=== PATIENT | male | born 1975 | race American Indian/Alaskan Native ===

== ENCOUNTER 2021-02-26 20:10 | Emergency (ER) | payer OTHER ==
[2021-02-26 21:45] VITALS: BP 133/88
--- NOTE | 2021-02-26 21:46 | Event Note ---
ED Screening Note ED Screening Note: LLE PAIN P DROPPING CHAIR ON LEG MID MAY NOW SWOLLEN AND TIGHT DOWN TO ANKLE NO MED HX NO HX DVT MINIMAL RISK FOR DVT This initial assessment/diagnostic orders/clinical plan/treatment(s) is/are subject to change based on patients health status, clinical progression and re- assessment by fellow clinical providers in the ED. Further treatment and workup at subsequent clinical providers discretion. Patient/guardian urged not to elope from the ED as their condition may be serious if not clinically assessed and managed. Initial orders include: XR US RO DVT
--- NOTE | 2021-02-26 22:30 | XRay Report ---
LEFT TIBIA-FIBULA 4 VIEW(S) INDICATION / CLINICAL INFORMATION: fell down stairs pinning leg under couch he was moving 02/01.... leg still swollen and painful COMPARISON: None available. FINDINGS: BONES / JOINT(S): No acute fracture or subluxation. No significant arthritis. Prominent retrocalcanea l enthesophyte. SOFT TISSUES: No significant abnormality. ADDITIONAL FINDINGS: None. Signer Name: Archie Syed MD Signed: 02/26/2021 10:26 PM Workstation Name: [id number]
--- NOTE | 2021-02-26 22:39 | Emergency Department Report ---
ED Lower Extremity HPI - General Chief Complaint: Extremity Injury, Lower Stated Complaint: LEFT LEG INJURY/SWOLLEN Time Seen by Provider: 02/26/21 21:45 Source: patient Mode of arrival: Ambulatory Limitations: No Limitations - History of Present Illness Initial Comments: 45 yo AA comes to ER p dropping something on his l garrido about 3 w ago. He states since then it has been swollen and painful. Complaint: other -: Gradual, days(s) Injury: Leg: Left Type of Injury: blunt Improves With: nothing Worsens With: nothing Context: direct blow - Related Data Allergies Allergy/AdvReac Type Severity Reaction Status Date / Time No Known Allergies Allergy Unverified 02/26/21 21:45 ED Review of Systems ROS: Stated complaint: LEFT LEG INJURY/SWOLLEN Other details as noted in HPI Comment: All other systems reviewed and negative ED Past Medical Hx - Past Medical History Previous Medical History?: No - Surgical History Past Surgical History?: Yes Additional Surgical History: nasal surgery - Family History Family history: no significant - Social History Smoking Status: Never Smoker Substance Use Type: None ED Physical Exam - General Limitations: No Limitations General appearance: alert, in no apparent distress - Head Head exam: Present: atraumatic, normocephalic - Eye Eye exam: Present: normal appearance - ENT ENT exam: Present: mucous membranes moist - Neck Neck exam: Present: normal inspection - Respiratory Respiratory exam: Present: normal lung sounds bilaterally. Absent: respiratory distress - Cardiovascular Cardiovascular Exam: Present: regular rate, normal rhythm. Absent: systolic murmur, diastolic murmur, rubs, gallop - GI/Abdominal GI/Abdominal exam: Present: soft, normal bowel sounds - Rectal Rectal exam: Present: deferred - Extremities Exam Extremities exam: Present: normal inspection - Expanded Lower Extremity Exam Left Knee exam: Present: normal inspection Lower Leg exam: Present: full ROM, swelling. Absent: tenderness Ankle exam: Present: swelling Foot/Toe exam: Present: normal inspection Neuro vascular tendon exam: Present: no vascular compromise - Back Exam Back exam: Present: normal inspection - Neurological Exam Neurological exam: Present: alert, oriented X3 - Psychiatric Psychiatric exam: Present: normal affect, normal mood - Skin Skin exam: Present: warm, dry, intact, normal color. Absent: rash ED Course Vital Signs 02/26/21 02/26/21 21:40 23:40 Temperature 97.9 F Pulse Rate 78 82 Respiratory 18 16 Rate Blood Pressure 133/88 O2 Sat by Pulse 98 99 Oximetry ED Lower Extremity MDM - Radiology Data Radiology results: report reviewed, image reviewed NAP - Medical Decision Making XRAY NAP us negative for dvt Vital Signs 02/26/21 21:40 Temperature 97.9 F Pulse Rate 78 Respiratory 18 Rate Blood Pressure 133/88 O2 Sat by Pulse 98 Oximetry dc home with dc plan of care. pt verbalizes understanding. - Differential Diagnosis RO FX/SOFT TISSUE INJURY/ DVT Critical care attestation.: If time is entered above; I have spent that time in minutes in the direct care of this critically ill patient, excluding procedure time. ED Disposition Clinical Impression: Leg pain Disposition: DC-01 TO HOME OR SELFCARE Is pt being admited?: No Does the pt Need Aspirin: No Condition: Stable Additional Instructions: warm compresses over the counter motrin or tylenol for pain follow up with pcp if pain persists referral below Referrals: IDANIA OVALLES MD [Staff Physician] - 3-5 Days Forms: Work/School Release Form(ED) Time of Disposition: 22:43
--- NOTE | 2021-03-03 07:47 | Vascular Lab Report ---
DUPLEX DOPPLER LOWER EXTREMITY VEINS, LEFT INDICATION: pain and swelling lle. TECHNIQUE: Duplex doppler imaging was performed through the veins of the left lower extremity using venous compr ession and other maneuvers. COMPARISON: None available. FINDINGS: Common femoral vein: Negative. Superficial femoral vein: Negative. Popliteal vein: Negative. Calf veins: Negative. Additional findings: None. IMPRESSION: 1. No sonographic evidence for DVT in the left lower extremity. Signer Name: Della Mancilla MD Signed: 02/26/2021 11:14 PM Workstation Name: [id number]
== END 2021-02-26 23:40 | disposition home or self-care (01) ==
LOC: ED 20:10
DX: M79.605 Pain in left leg (principal); Z98.890 Other specified postprocedural states

== ENCOUNTER 2021-04-19 16:49 | Emergency (ER) | payer OTHER ==
[2021-04-19 17:59] VITALS: BP 122/76
[2021-04-19 19:24] LABS: Basophils % (Auto) 0.3 % (0.0-1.8); Eosinophils # (Auto) 0.7 K/mm3 (0.0-0.4); Eosinophils % (Auto) 7.6 % (0.0-4.3); Hematocrit 41.5 % (35.5-45.6); Hemoglobin 13.9 gm/dl (11.8-15.2); Lymphocytes # (Auto) 2.2 K/mm3 (1.2-5.4); Lymphocytes % (Auto) 23.7 % (13.4-35.0); Mean Corpuscular HGB Conc 34 % (32-34); Mean Corpuscular Volume 87 fl (84-94); Monocytes # (Auto) 0.7 K/mm3 (0.0-0.8); Monocytes % (Auto) 7.4 % (0.0-7.3); Platelet Count 282 K/mm3 (140-440); Red Blood Count 4.78 M/mm3 (3.65-5.03); Red Cell Distribution Width 13.1 % (13.2-15.2)
[2021-04-19 19:33] LABS: Alanine Aminotransferase 22 units/L (7-56); Albumin 4.2 g/dL (3.9-5); BUN/Creatinine Ratio 8; Blood Urea Nitrogen 9 mg/dL (9-20); Calcium 9.5 mg/dL (8.4-10.2); Hemolysis Index 6
--- NOTE | 2021-04-21 10:38 | Electrocardiograph Report ---
[facility] Test Date: 2021-04-19 Test Time: 17:31:05 Pat Name: PADMINI CHO Department: Room: Gender: M Cobol Engineer: TUTU : 1975 Requested By: JOI BYRD Order Number: [id number] Reading MD: Leonel Kinney Measurements Intervals [place] Rate: 89 P: 46 MA: 139 QRS: -30 QRSD: 82 T: 0 QT: 356 QTc: 434 Interpretive Statements Sinus rhythm Left axis deviation No previous ECG available for comparison Electronically Signed On 04-21-2021 10:37:56 EDT by Leonel Kinney
== END 2021-04-19 19:58 | disposition left against medical advice (07) ==
LOC: ED 16:49
DX: S09.90XA Unspecified injury of head, initial encounter (principal); Z53.21 Procedure and treatment not carried out due to patient leaving prior to being seen by health care provider; X58.XXXA Exposure to other specified factors, initial encounter; Y93.89 Activity, other specified; Y92.89 Other specified places as the place of occurrence of the external cause; Y99.8 Other external cause status
CPT/HCPCS: 36415; 80053; 84484; 85025; 93005

== ENCOUNTER 2021-04-21 11:39 | Emergency (ER) | payer OTHER ==
[2021-04-21 12:27] VITALS: BP 143/91
--- NOTE | 2021-04-21 16:25 | Event Note ---
ED Screening Note Date of service: 04/21/21 Time: 16:20 ED Screening Note: 45-year-old -Lao male presents to the emergency room for dizziness and a syncopal moment after he had sneezed and lost consciousness. Patient stated on Wednesday he was at work [place] [employer] [place] he started to sneeze so hard that he hit his head on the [employer] machine and blacked out. Patient states when he woke up he had blood on his phone in the machine. Patient did not realize how hard he hit his head until he went to get his phone repaired on Wednesday in the whole phone was bent. Patient states that he did come in on Wednesday to be evaluated had blood work done and EKG but the wait was so long he went home. Patient states again while at work he has been experiencing some dizziness and decided to come back in to be evaluated. Patient is alert and oriented x3 no acute distress nontoxic in appearance Patient has left side maxillary and left lateral nasal bone tenderness. Neck cervical tenderness Patient is ambulatory without difficulties. This initial assessment/diagnostic orders/clinical plan/treatment(s) is/are subject to change based on patients health status, clinical progression and re- assessment by fellow clinical providers in the ED. Further treatment and workup at subsequent clinical providers discretion. Patient/guardian urged not to elope from the ED as their condition may be serious if not clinically assessed and managed. Initial orders include: CT head, neck, facial
--- NOTE | 2021-04-21 17:33 | Cat Scan Report ---
CT head/brain wo con INDICATION / CLINICAL INFORMATION: 45 years Male; Head trauma. TECHNIQUE: Routine CT head without contrast. All CT scans at this location are performed using CT dos e reduction for ALARA by means of automated exposure control. COMPARISON: None. FINDINGS: BRAIN / INTRACRANIAL CONTENTS: No acute hemorrhage, mass effect, midline shift, hydrocephalus, or acu te, large territorial infarct. No signs of significant atrophy or chronic infarct. No significant whi te matter abnormality seen. CRANIOCERVICAL JUNCTION: No significant abnormality. ORBITS: No significant abnormality of visualized orbits. SINUSES / MASTOIDS: Partial opacification of the ethmoid seen. Mucous retention cyst suggested in the left maxillary antrum. Prior antrostomies noted. There is partial opacification of the mastoids bilaterally without coalescence of air cells. ADDITIONAL FINDINGS: Small metallic BB is seen in the subcutaneous soft tissues superficial left lizbeth etal bone. IMPRESSION: 1. No focal mass, hemorrhage, hydrocephalus, or acute, large territorial infarct. Signer Name: Chinmay Crews MD, III Signed: 04/21/2021 5:29 PM Workstation Name: [id number]
--- NOTE | 2021-04-21 17:39 | Cat Scan Report ---
CT cervical spine wo con INDICATION / CLINICAL INFORMATION: 45 years Male; Head trauma. TECHNIQUE: Axial CT images of the cervical spine were obtained. Sagittal and coronal reformatted images were pr oduced. All CT scans at this location are performed using CT dose reduction for ALARA by means of aut omated exposure control. COMPARISON: None available. FINDINGS: POST-SURGICAL CHANGES: None. ALIGNMENT: Straightening of the cervical spine noted, which may be related to patient positioning. VERTEBRAE: No signs of fracture. Vertebral bodies are grossly normal in height throughout. There is significant osseous foraminal narrowing on the left at C3-4 from uncinate hypertrophy. Mild osseous foraminal narrowing on the right at C3-4 and C4-5 from uncinate hypertrophy. INTRAVERTEBRAL DISCS: Mild disc space narrowing seen at C5-6. Mild disc disease seen at multiple leve ls with most prevalent findings at C3-4 with there is a right paracentral disc protrusion. There may be slight encroachment upon the cervical cord. Most likely there is no cord impingement. PARASPINAL SOFT TISSUES: No significant abnormality. ADDITIONAL FINDINGS: None. IMPRESSION: 1. No signs of acute bony trauma to the cervical spine. Signer Name: Chinmay Crews MD, III Signed: 04/21/2021 5:34 PM Workstation Name: [email or web address]
--- NOTE | 2021-04-21 17:42 | Cat Scan Report ---
. CT facial bones wo con INDICATION / CLINICAL INFORMATION: 45 years Male; Facial trauma. TECHNIQUE: Thin cut axial images obtained. Sagittal and coronal reconstructions performed. All CT scans at this location are performed using CT dose reduction for ALARA by means of automated exposure control. COMPARISON: None available. FINDINGS: No signs of calvarial or acute bony facial fracture. Prior antrostomies noted. There is partial opacification of the ethmoids. Mucous retention cysts/polyps seen in both maxillary antra. Moderate mucosal thickening is seen in the right sphenoid sinus. There is partial opacificatio n the mastoids without coalescence of air cells. Subcutaneous BB is seen superficial left parietal bone. IMPRESSION: 1. No definitive signs of acute bony facial fracture. Signer Name: Chinmay Crews MD, III Signed: 04/21/2021 5:38 PM Workstation Name: [id number] [id number]
--- NOTE | 2021-04-21 19:05 | Emergency Department Report ---
ED General Adult HPI - General Chief complaint: Head Injury Stated complaint: SYNCOPE Time Seen by Provider: 04/21/21 18:48 Source: patient Mode of arrival: Ambulatory Limitations: No Limitations - History of Present Illness Initial comments: 45-year-old -[place] Islander male patient presents with complaints of nausea and headache after a head injury occurring on Wednesday. Patient states that for the past 4 years he has had episodes of sneezing that cause syncope. 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 He reports he had a Holter monitor placed and the doctor believes his episodes were due to a drop in blood pressure while sneezing. Patient reports the episodes do not happen often however it did occur while at work on Wednesday and when he fell he hit his head on the kiosk machine. Patient states he was unconscious for an unknown amount of time and had mild bleeding of his head and his lip. He states he felt fine that day, however the next day he began having mild intermittent headaches relieved with Tylenol. He states on Wednesday that he had a few episodes of nausea and today he had an episode of dizziness after walking around in circles at work today and one episode of dizziness on Wednesday after the incident. He denies any further dizziness, chest pain, shortness of breath, vision changes, numbness/ tingling/weakness in his limbs, difficulty with speech/ambulation, confusion, or memory loss. No headache at current per patient. Patient did come to the ER on Wednesday, however he states the wait was too long he left after having an EKG and blood work performed. He also denies any leg pain/swelling, recent long travel/surgeries, hemoptysis/cough, or history of DVT/PE/cancer - Related Data Previous Rx's Medication Instructions Recorded Last Taken Type Ondansetron [Zofran Odt] 4 mg PO Q8HR PRN #10 tab.rapdis 04/21/21 Unknown Rx Allergies Allergy/AdvReac Type Severity Reaction Status Date / Time No Known Allergies Allergy Unverified 02/26/21 21:45 ED Review of Systems ROS: Stated complaint: SYNCOPE Other details as noted in HPI Constitutional: denies: chills, diaphoresis, fever, malaise, weakness Respiratory: denies: cough, shortness of breath Cardiovascular: denies: chest pain Gastrointestinal: nausea. denies: abdominal pain, vomiting Musculoskeletal: denies: back pain Neurological: as per HPI. denies: weakness, numbness, paresthesias, abnormal gait ED Past Medical Hx - Past Medical History Previous Medical History?: No Additional medical history: sinus - Surgical History Past Surgical History?: Yes Additional Surgical History: nasal surgery - Social History Smoking Status: Never Smoker Substance Use Type: Alcohol - Medications Home Medications: Home Medications Medication Instructions Recorded Confirmed Last Taken Type Ondansetron [Zofran Odt] 4 mg PO Q8HR PRN #10 tab.rapdis 04/21/21 Unknown Rx ED Physical Exam - General Limitations: No Limitations General appearance: alert, in no apparent distress - Head Head exam: Present: atraumatic, normocephalic - Eye Eye exam: Present: normal appearance, PERRL, EOMI. Absent: scleral icterus - Neck Neck exam: Present: normal inspection. Absent: tenderness - Respiratory Respiratory exam: Present: normal lung sounds bilaterally. Absent: respiratory distress - Cardiovascular Cardiovascular Exam: Present: regular rate, normal rhythm. Absent: systolic murmur, diastolic murmur, rubs, gallop - GI/Abdominal GI/Abdominal exam: Present: soft. Absent: tenderness - Extremities Exam Extremities exam: Present: full ROM - Back Exam Back exam: Present: full ROM - Neurological Exam Neurological exam: Present: alert, oriented X3, CN II-XII intact, normal gait. Absent: motor sensory deficit - Expanded Neurological Exam Expanded Cerebellar function: Finger to Nose: Normal, Heel to Cotton: Normal, Romberg: Normal Sensory exam: Upper Extremity Light Touch: Normal, Lower Extremity Light Touch: Normal Motor strength exam: RUE: 5, LUE: 5, RLE: 5, LLE: 5 - Psychiatric Psychiatric exam: Present: normal affect, normal mood - Skin Skin exam: Present: warm, dry, intact, normal color. Absent: rash, cyanosis, diaphoretic ED Course Vital Signs 04/21/21 12:26 Temperature 98.7 F Pulse Rate 89 Respiratory 18 Rate Blood Pressure 143/91 [Right] O2 Sat by Pulse 97 Oximetry ED Medical Decision Making - EKG Data EKG shows normal: sinus rhythm Rate: normal - EKG Data Interpretation: other (Left axis deviation) - Radiology Data Radiology results: report reviewed - Medical Decision Making 45-year-old -[place] male patient presents with complaints of nausea and headache after a head injury occurring on Wednesday. Patient states that for the past 4 years he has had episodes of sneezing that cause syncope. 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 He reports he had a Holter monitor placed and the doctor believes his episodes were due to a drop in blood pressure while sneezing. Patient reports the episodes do not happen often however it did occur while at work on Wednesday and when he fell he hit his head on the kiosk machine. Patient states he was unconscious for an unknown amount of time and had mild bleeding of his head and his lip. He states he felt fine that day, however the next day he began having mild intermittent headaches relieved with Tylenol. He states on Wednesday that he had a few episodes of nausea and today he had an episode of dizziness after walking around in circles at work today and one episode of dizziness on Wednesday after the incident. He denies any further dizziness, chest pain, shortness of breath, vision changes, numbness/tingling/weakness in his limbs, difficulty with speech/ambulation, confusion, or memory loss. No headache at current per patient. Patient did come to the ER on Wednesday, however he states the wait was too long he left after having an EKG and blood work performed. He also denies any leg pain /swelling, recent long travel/surgeries, hemoptysis/cough, or history of DVT/PE/cancer Neuro exam is normal. CT head, neck, and face are normal. No abnormalities noted on CBC, CMP, or troponin taken on 04/19. EKG was normal. Patient is not on blood thinners. He continues to deny any current symptoms. Symptoms likely due to concussion. Discussed need for brain rest and follow-up with his primary care doctor in 2 days. His vitals are within normal limits, he is well- appearing, he is stable for discharge home. Strict return precautions were discussed in detail with patient who verbalized understanding. Patient provided with referral for neurology and cardiology for chronic recurrent syncopal episodes Critical care attestation.: If time is entered above; I have spent that time in minutes in the direct care of this critically ill patient, excluding procedure time. ED Disposition Clinical Impression: Head injury with loss of consciousness Disposition: - TO HOME OR SELFCARE Is pt being admited?: No Condition: Stable Instructions: Head Injury, Adult, Concussion, Adult Prescriptions: Ondansetron [Zofran Odt] 4 mg PO Q8HR PRN #10 tab.rapdis PRN Reason: Nausea Referrals: CADENCE ROBERTS MD [Staff Physician] - 3-5 Days ERIC CROW MD [Staff Physician] - 3-5 Days PRIMARY CARE, [Referring] - 2-3 Days Forms: Work/School Release Form(ED)
--- NOTE | 2021-04-22 18:07 | Electrocardiograph Report ---
[facility] Test Date: 2021-04-21 Test Time: 12:33:19 Pat Name: PADMINI CHO Department: Room: Gender: M Senior Project Controls Specialist: ALCIRA : 1975 Requested By: ED DOC Order Number: [id number] Reading MD: Terrance Tee Measurements Intervals [place] Rate: 78 P: 30 OR: 161 QRS: -39 QRSD: 88 T: 0 QT: 380 QTc: 434 Interpretive Statements Sinus rhythm Left axis deviation Compared to ECG 04/19/2021 17:31:05 No significant changes Electronically Signed On 04-22-2021 18:06:38 EDT by Terrance Tee
== END 2021-04-21 19:30 | disposition home or self-care (01) ==
LOC: ED 11:39
DX: S06.9X9A Unspecified intracranial injury with loss of consciousness of unspecified duration, initial encounter (principal); R42 Dizziness and giddiness; X58.XXXA Exposure to other specified factors, initial encounter; F10.20 Alcohol dependence, uncomplicated; Y93.89 Activity, other specified; Y92.89 Other specified places as the place of occurrence of the external cause; Y99.0 Civilian activity done for income or pay
CPT/HCPCS: 70450; 70486; 72125; 93005; 99283